=== PATIENT | female | born 1960 | race Caucasian/White ===

== ENCOUNTER 2017-09-02 13:45 | Emergency (ER) | payer OTHER ==
[~2017-09-02] VITALS: Ht 157.5 cm; Wt 68.9 kg
[2017-09-02 13:46] VITALS: TEMP 36.4; Ht 157.5 cm; Wt 68.9 kg
[2017-09-02] MEDS ORDERED: ACETAMINOPHEN 500 MG TAB PO STA (14:34)
[2017-09-02 14:56] VITALS: BP 128/73; PULSE 61; O2SAT 94
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
== END 2017-09-02 16:28 | disposition home or self-care (01) ==
LOC: EDBD 13:45 → C.EDB 13:47
DX: S06.0X9A Concussion with loss of consciousness of unspecified duration, initial encounter (principal); S16.1XXA Strain of muscle, fascia and tendon at neck level, initial encounter; V49.40XA Driver injured in collision with unspecified motor vehicles in traffic accident, initial encounter; Y92.415 Exit ramp or entrance ramp of street or highway as the place of occurrence of the external cause; Z87.39 Personal history of other diseases of the musculoskeletal system and connective tissue; Z87.891 Personal history of nicotine dependence